=== PATIENT | male | born 1985 | race Caucasian/White ===

== ENCOUNTER 2022-10-22 03:50 | Inpatient (IN) ==
[2022-10-22] MEDS ORDERED: SODIUM CHLORIDE 0.9% 1,000 ML IV STA (04:11)
[2022-10-22] MEDS ORDERED: ONDANSETRON 4 MG/2 ML VIAL IV STA (04:11)
[2022-10-22] MEDS ORDERED: HYDROmorphone 1 MG/1 ML SYRINGE IV ONE (04:13)
[2022-10-22] MEDS ORDERED: DILTIAZEM 25 MG/5 ML VIAL IV ONE (04:18)
[2022-10-22] MEDS ORDERED: DILTIAZEM 25 MG/5 ML VIAL IV STA (04:27)
[2022-10-22 04:28] LABS: Basophils % 0.2 % (0.0-0.8); Eosinophils # 0.1 10*3/uL (0.0-0.87); Hematocrit 46.5 VOL% (42.0-52.0); Immature Granulocytes % 0.3 %; Immature Granulocytes Absolute 0.03 #; Lymphocytes # 1.9 10*3/uL (1.4-4.0); Lymphocytes % 19.5 % (21.2-54.2); Mean Corpuscular HGB Conc 34.4 GM/DL (32-36); Mean Corpuscular Volume 96.7 FL (87-102); Mean Platelet Volume 10.4 FL (9.6-12.0); Monocytes # 0.6 10*3/uL (0.11-0.8); Monocytes % 5.9 % (1.7-12.7); Neutrophils % 73.1 % (38.7-73.9); Platelet Count 174 T/CUMM (130-400); Red Blood Count 4.81 MC/CUMM (3.8-5.5); Red Cell Distribution Width 13.2 % (9.3-17.3); White Blood Count 9.5 T/CUMM (4-12)
[2022-10-22] MEDS ORDERED: DILTIAZEM INJ 100 MG in SODIUM CHLORIDE 0.9% 100 ML IV SCH (04:30)
[2022-10-22 04:47] LABS: Albumin 4.2 G/DL (3.4-5.0); Bilirubin,Total 0.6 MG/DL (0.20-1.00); Potassium 3.9 MMOL/L (3.5-5.1); Total Protein 7.2 G/DL (6.4-8.2)
[2022-10-22 05:00] LABS: Hyaline Casts,Urine 1 /LPF (0-3); Mucus,Urine Few /LPF (Occasional); Protein,Urine Negative (Negative); RBC,Urine 14 /HPF (0-4); Urine Appearance Clear (Clear); Urine Color Yellow (Yellow); Urine Specific Gravity > 1.030 (1.001-1.035)
[2022-10-22 05:01] LABS: Bilirubin,Urine Negative (Negative); Blood, Urine Small mg/dL (Negative); Glucose,Urine (UA) Negative (Negative); Ketones,Urine Trace mg/dL (Negative); Nitrite,Urine Negative (Negative)
[2022-10-22] MEDS ORDERED: METOPROLOL TARTRATE 5 MG/5 ML VIAL IV STA (05:09)
[2022-10-22] MEDS ORDERED: METOPROLOL TARTRATE 5 MG/5 ML VIAL IV ONE (05:10)
[2022-10-22] MEDS ORDERED: hydrALAZINE 20 MG/1 ML VIAL IV PRN (05:40)
[2022-10-22] MEDS ORDERED: MORPHINE 2 MG/1 ML SYRINGE IV PRN (05:40)
[2022-10-22] MEDS ORDERED: ACETAMINOPHEN 325 MG TABLET PO PRN (05:40)
[2022-10-22] MEDS ORDERED: ONDANSETRON 4 MG/2 ML VIAL IV PRN (05:40)
[2022-10-22] MEDS ORDERED: POTASSIUM CHLORIDE 20 MEQ TABLET PO ONE (06:00)
[2022-10-22 06:08] LABS: INR 1.1; PT Patient Result 12.4 SECS (10.1-12.1)
[2022-10-22] MEDS ORDERED: NICOTINE 21 MG/24 HR PATCH TRANSDERM PRN (06:09)
[2022-10-22 06:33] LABS: Risk Ratio 2.39; Thyroid Stimulating Hormone 2.67 uIU/ml (0.358-3.74); VLDL Cholesterol 17.4 MG/DL
[2022-10-22 08:39] LABS: Barbiturates Screen,Urine Negative (Negative); Benzodiazepines Screen,Urine Negative (Negative); Cannabinoid Screen,Urine Positive (Negative); Opiate Screen,Urine Positive (Negative); Phencyclidine Screen,Urine Negative (Negative)
[2022-10-22] MEDS ORDERED: PANTOPRAZOLE 40 MG TABLET PO SCH (09:00)
[2022-10-22 10:47] VITALS: BP 96/81
== END 2022-10-22 10:44 | disposition left against medical advice (07) | DRG 310 ==
LOC: N.ED 03:50 → N.EDINP 05:40 → SUATTDRO 05:40 → N.EDINP 10:44
PROVIDERS: ADMIT Emergency Medicine; ATTEND Internal Medicine